=== PATIENT | female | born 1950 | race African-American/Black ===

== ENCOUNTER 2018-09-19 09:44 | Day surgery (SDC) | payer MEDICARE, MEDICAID ==
[~2018-09-19] VITALS: Ht 167.6 cm; Wt 56.7 kg
[2018-09-19] MEDS ORDERED: fentaNYL 0.05 MG/ML VIAL ONE (11:51)
[2018-09-19] MEDS ORDERED: LIDOCAINE 2% 100 MG/5 ML UJET TP ONE (11:52)
[2018-09-19] MEDS ORDERED: MIDAZOLAM 2 MG/2 ML VIAL ONE ×2 (11:52)
[2018-09-19] MEDS ORDERED: fentaNYL 0.05 MG/ML VIAL IVP ONE (13:55)
[2018-09-19] MEDS ORDERED: MIDAZOLAM 2 MG/2 ML VIAL IVP ONE (13:55)
== END 2018-09-19 13:05 | disposition home or self-care (01) ==
LOC: MDS 09:44 → MMU 09:46 → MDS 13:05
PROVIDERS: ATTEND Internal Medicine Gastroenterology
DX: D12.7 Benign neoplasm of rectosigmoid junction (principal); D12.3 Benign neoplasm of transverse colon; K64.8 Other hemorrhoids; M06.9 Rheumatoid arthritis, unspecified; Z87.891 Personal history of nicotine dependence; Z79.899 Other long term (current) drug therapy
CPT/HCPCS: 36415; 43239; 45385; 86677; J2250; J3010